=== PATIENT | male | born 1965 ===

== ENCOUNTER → 2023-11-12 15:50 | Outpatient (REF) | payer OTHER, SELFPAY | LOC: DHCBS MAIN 15:50 | PROVIDERS: ATTENDING PHYSICIAN Internal Medicine Cardiovascular Disease; FAMILY PHYSICIAN Internal Medicine | DX: I10 Essential (primary) hypertension (principal); Z82.49 Family history of ischemic heart disease and other diseases of the circulatory system; I51.7 Cardiomegaly | CPT/HCPCS: 93306 ==